=== PATIENT | male | born 1965 | race Caucasian/White ===

== ENCOUNTER → 2024-06-01 10:03 | Outpatient (REF) | payer OTHER, SELFPAY | LOC: RAD 10:03 | PROVIDERS: ATTENDING PHYSICIAN Family Medicine | DX: M25.561 Pain in right knee (principal) | CPT/HCPCS: 73564 ==

== ENCOUNTER → 2024-07-09 06:39 | Outpatient (REF) | payer OTHER, SELFPAY | LOC: MRI 3T 06:39 | PROVIDERS: ATTENDING PHYSICIAN Specialist; FAMILY PHYSICIAN Physician Assistant Medical | DX: M25.561 Pain in right knee (principal) | CPT/HCPCS: 73721 ==

== ENCOUNTER → 2024-07-26 14:40 | Outpatient (REF) | payer OTHER, SELFPAY ==
[2024-07-26 15:18] LABS: % Basophils 0.6 % (0-2); % Eosinophils 4.4 % (0-6); % Immature Granulocytes 0.2 % (0-0.5); % Monocytes 9.3 % (1.7-9.3); % Neutrophils 48.5 % (42.2-75.2); Absolute Eosinophils 0.2 10^3/uL (0-0.7); Absolute Lymphocytes 1.8 10^3/uL (1.2-3.4); Absolute Monocytes 0.5 10^3/uL (0.1-0.6); Absolute Neutrophils 2.4 10^3/uL (1.4-6.5); Hematocrit 38.6 % (39.0-52.0); Hemoglobin 13.2 g/dL (13.0-18.0); Mean Corp Hgb Conc. 34.2 g/dL (33.0-37.0); Mean Corpuscular Hgb 31.2 pg (27.0-31.0); Mean Corpuscular Volume 91.3 fL (80.0-94.0); Mean Platelet Volume 10.1 fL (7.4-10.4); Nucleated Red Blood Cells % 0 % (-); Platelet Count 200 10^3/uL (130-400); Red Blood Cell Count 4.23 10^6/uL (4.70-6.10); Red Cell Dist. Width 12.4 % (11.5-14.5)
[2024-07-26 15:43] LABS: Blood Urea Nitrogen 26 mg/dl (9-20); Calcium 9.3 mg/dl (8.4-10.2); Carbon Dioxide 27 mmol/L (22-30); Chloride 104 mmol/L (98-107); Glucose 104 mg/dl (70-99); Sodium 143 mmol/L (135-145); eGFR > 60.00
== END ==
LOC: RCS 14:40
PROVIDERS: ATTENDING PHYSICIAN Specialist; FAMILY PHYSICIAN Physician Assistant Medical
DX: Z01.818 Encounter for other preprocedural examination (principal)
CPT/HCPCS: 36415; 80048; 85025; 93005

== ENCOUNTER → 2024-08-15 16:45 | Outpatient (REF) | payer OTHER, SELFPAY | LOC: RAD 16:45 | PROVIDERS: ATTENDING PHYSICIAN Physician Assistant Medical | DX: G89.29 Other chronic pain (principal); M79.661 Pain in right lower leg | CPT/HCPCS: 93971 ==

== ENCOUNTER 2024-08-24 13:39 | Emergency (ER) | payer OTHER, SELFPAY ==
[2024-08-24 13:42] VITALS: BMI 36.0
--- NOTE | 2024-08-24 15:24 | ED.GENMED ---
History of Present Illness
General
Chief Complaint: DVT/Possible Blood Clot
Time Seen by Provider: 08/24/24 15:01
History of Present Illness
History of Present Illness:
58-year-old male presents the emergency department for evaluation of right calf pain and warmth as well as swelling developing in mild fashion before his recent surgery, worsened today. He is 4 days status post right knee arthroscopic partial
meniscectomy performed by Dr. Chance. No fevers or chills
Past History
Past History
ED Past Medical History: HTN and Other (GI bleeding upper)
ED Past Surgical History: Orthopedic (Knee surgery)
Social History
Tobacco: Smoker (Cigar smoking, States that he dips)
Alcohol: None
Drug: None
Personal:
Living: alone
Employment: Employed
Family History
Family History: Other (N/c)
Review of Systems
Review of Systems
Allergies reviewed?: Yes
All Other Systems: ROS reviewed and negative except as documented in HPI and ROS
Phy Exam
Physical Exam
Physical Exam:
GEN: Well appearing, NAD, WDWN
HEENT: Oral mucosa moist, no scleral icterus
Cardiac: Regular rate
Lung: No respiratory distress, no tachypnea
MSK: No gross deformity or injuries. Moderate swelling of the R calf, compartments soft x 4, mild pain w/ passive calf stretch
Skin: Good color, no pallor or jaundice, no rashes
Neuro: AO x3, moves all extremities freely
Psych: Calm, cooperative
Course
Orders/Labs/Results
Orders:
Orders
08/24/24 14:20
US Periph Venous LOWER Ext RT Urgent
Comment:
Reason For Exam: post op pain
Vital Signs
Initial and Last Documented VS:
Initial Vital Signs
Temp Pulse Resp Pulse Ox
98.3 F 92 18 97
08/24/24 13:42 08/24/24 13:42 08/24/24 13:42 08/24/24 13:42
Last Documented Vital Signs
Temp Pulse Resp Pulse Ox
98.3 F 92 18 97
08/24/24 13:42 08/24/24 13:42 08/24/24 13:42 08/24/24 13:42
MDM/Problems Addressed
MDM/Problems Addressed:
No clinical signs of compartment syndrome, sounds as though the hematoma began prior to his recent surgery and this is not a surgical complication. Discussed supportive care
*Critical Care Note
Total Time (30-74mins, 75-104mins- exclusive of procedures): Not Applicable
ED Attending Note
-
Portions of this chart may have been created with voice recognition software.� Occasional wrong word or��sound alike� substitutions may have occurred due to the inherent limitations of voice recognition software.
Discharge Plan
Departure
Patient Disposition: Home (Routine Discharge)
Date of Disposition: 08/24/24
Time of Disposition: 15:47
Patient with high blood pressure during this ER visit?: No
Discharge Problem:
Hematoma
Instructions: Hematoma
Prescriptions:
No Action
amlodipine 10 mg tablet
10 mg PO DAILY
valsartan-hydrochlorothiazide 320-25 mg tablet
1 tab PO DAILY
Referrals:
Graciela Lara PA-C [Family Provider] -
Activity Restrictions/Additional Instructions:
Elevate and ice the leg to reduce swelling
Use an Francisco wrap or compression sleeve to decrease bleeding and swelling when you are upright for a long period of time
Follow-up in the ED if your symptoms dramatically worsen at any point in time
Interventions
Interventions:
*Risk Screen - Suicide Last Done: 08/24/24 13:42
*ED- Fall Risk Assessment Last Done: 08/24/24 13:42
Discharge Date and Time
Print Language: SERBIAN
== END 2024-08-24 16:38 | disposition home or self-care (01) ==
LOC: EMR 13:39
PROVIDERS: EMERGENCY PHYSICIAN Emergency Medicine; FAMILY PHYSICIAN Physician Assistant Medical
DX: S80.11XA Contusion of right lower leg, initial encounter (principal); X58.XXXA Exposure to other specified factors, initial encounter; I10 Essential (primary) hypertension; F17.290 Nicotine dependence, other tobacco product, uncomplicated
CPT/HCPCS: 99284; 93971